=== PATIENT | male | born 1955 | race Caucasian/White ===

== ENCOUNTER 2022-06-19 17:27 | Observation (INO) ==
[2022-06-19] MEDS ORDERED: *HR* Heparin 5,000 UNIT/ML VIAL IVP ONE (17:54)
[2022-06-19] MEDS ORDERED: *HR* Heparin 5,000 UNIT/ML VIAL IVP PRN ×2 (17:54)
[2022-06-19] MEDS ORDERED: Naloxone 0.4 MG/ML INJ IVP PRN (18:30)
[2022-06-19 18:34] LABS: Hematocrit 39.6 % (37.5-50.1); Hemoglobin 13.2 g/dL (12.9-16.9); Mean Corpuscular HGB Conc 33.3 g/dL (31.6-35.5); Mean Corpuscular Hemoglobin 30.2 pg (28.0-33.3); Mean Corpuscular Volume 90.6 fL (83.0-100.0); Mean Platelet Volume 10.2 fL (9.4-12.4); Platelet Count 223 K/mcL (140-400); Red Blood Count 4.37 M/mcL (4.19-5.50); Red Cell Distribution Width 14.1 % (11.5-14.5); White Blood Count 9.4 K/mcL (4.3-11.1)
[2022-06-19 18:40] LABS: Heparin anti-factor XA UFH < 0.04 IU/mL (0.30-0.70)
[2022-06-19 18:41] LABS: INR 1.1; Prothrombin Time 12.1 Seconds (9.4-12.1)
[2022-06-19] MEDS: Heparin 25,000UNIT/250ML 1/2NS 25,000 UNIT/250 ML IV.SOLN IVC SCH (18:50)
[2022-06-19] MEDS ORDERED: Famotidine 20 MG TABLET PO SCH (23:30)
[2022-06-20 00:58] LABS: Basophils # 0.1 K/mcL (0.0-0.2); Basophils % 0.5 %; Eosinophils # 0.1 K/mcL (0.0-0.6); Eosinophils % 1.2 %; Hematocrit 40.9 % (37.5-50.1); Hemoglobin 13.5 g/dL (12.9-16.9); Immature Granulocytes % 0.3 % (0-4); Lymphocytes # 2.5 K/mcL (0.6-4.6); Lymphocytes % 24.9 %; Mean Corpuscular Hemoglobin 29.8 pg (28.0-33.3); Mean Corpuscular Volume 90.3 fL (83.0-100.0); Monocytes % 10.1 %; Neutrophils # 6.2 K/mcL (1.6-8.9); Platelet Count 234 K/mcL (140-400); Red Blood Count 4.53 M/mcL (4.19-5.50); Red Cell Distribution Width 14.2 % (11.5-14.5); White Blood Count 9.9 K/mcL (4.3-11.1)
[2022-06-20 01:21] LABS: Calcium 8.8 mg/dL (8.6-10.3); Potassium 4.2 mEq/L (3.5-5.1)
[2022-06-20] MEDS: methocarbamoL 750 MG TABLET PO PRN ×2 (08:06→20:12)
[2022-06-20] MEDS: Gabapentin 300 MG CAPSULE PO SCH ×3 (08:07→20:11)
[2022-06-20] MEDS ORDERED: Ibuprofen 800 MG TABLET PO PRN (13:40)
[2022-06-20] MEDS ORDERED: Celecoxib 100 MG CAPSULE PO PRN (13:40)
[2022-06-20] MEDS ORDERED: DICLOFENAC SODIUM TP PRN (14:11)
[2022-06-20] MEDS: Acetaminophen 325 MG TABLET PO PRN (14:21)
[2022-06-20] MEDS: Heparin 25,000UNIT/250ML 1/2NS 25,000 UNIT/250 ML IV.SOLN IVC SCH (14:58)
[2022-06-20] MEDS: Magnesium Oxide 400 MG TABLET PO SCH (20:11)
[2022-06-20] MEDS: Apixaban 5 MG TABLET PO SCH (20:12)
[2022-06-21 05:30] LABS: Basophils % 0.5 %; Eosinophils # 0.1 K/mcL (0.0-0.6); Eosinophils % 1.1 %; Hematocrit 44.8 % (37.5-50.1); Hemoglobin 14.6 g/dL (12.9-16.9); Immature Granulocytes % 0.5 % (0-4); Lymphocytes # 1.4 K/mcL (0.6-4.6); Lymphocytes % 17.4 %; Mean Corpuscular HGB Conc 32.6 g/dL (31.6-35.5); Mean Corpuscular Hemoglobin 29.4 pg (28.0-33.3); Mean Corpuscular Volume 90.3 fL (83.0-100.0); Mean Platelet Volume 10.5 fL (9.4-12.4); Monocytes % 11.8 %; Neutrophils # 5.5 K/mcL (1.6-8.9); Platelet Count 249 K/mcL (140-400); Red Blood Count 4.96 M/mcL (4.19-5.50); Red Cell Distribution Width 14.3 % (11.5-14.5); Segmented Neutrophils % 68.7 %
[2022-06-21 05:45] LABS: % Iron Saturation 11 % (20-55); BUN/Creatinine Ratio 15 (6-26); Blood Urea Nitrogen 13 mg/dL (8-23); Calcium 9.2 mg/dL (8.6-10.3); Carbon Dioxide 24 mEq/L (23-29); Chloride 107 mEq/L (98-107); Glucose 101 mg/dL (70-105); Iron 46 mcg/dL (65-175); Osmolality,Calculated 290 (280-300); Potassium 3.9 mEq/L (3.5-5.1); Sodium 140 mEq/L (136-145); Transferrin 295 mg/dL (203-362)
[2022-06-21 05:50] VITALS: O2SAT 96
[2022-06-21 06:10] LABS: Ferritin 91 ng/mL (20-250)
[2022-06-21 06:17] LABS: Folate > 22.3 ng/mL (3.0-16.0); Vitamin B12 364 pg/mL (250-1100)
[2022-06-21 08:32] VITALS: BP 97/79; PULSE 108; TEMP 98
[2022-06-21] MEDS: Acetaminophen 325 MG TABLET PO PRN (08:39)
[2022-06-21] MEDS: Apixaban 5 MG TABLET PO SCH (08:40)
[2022-06-21] MEDS: Gabapentin 300 MG CAPSULE PO SCH (08:40)
[2022-06-21] MEDS: Magnesium Oxide 400 MG TABLET PO SCH (08:40)
== END 2022-06-21 11:44 | disposition home or self-care (01) ==
LOC: EMEROOARM 17:27 → 2NENU 17:27 → SUATTDRO 20:18 → 2NENU 21:44
PROVIDERS: ADMIT Internal Medicine; ATTEND Internal Medicine